=== PATIENT | female | born 1965 | race Caucasian/White ===

== ENCOUNTER → 2017-09-06 | Outpatient (CLI) | payer OTHER ==
[~2017-09-06] MED LIST: ACTOS PO; ALLOPURINOL PO; CALCIUM PO; CORGARD PO; CYMBALTA PO; LOVAZA1000 MG PO; METFORMIN PO; VITAMIN B-150 M1 PO
== END ==
LOC: M.ULTRA 09:00
DX: N93.9 Abnormal uterine and vaginal bleeding, unspecified (principal); Z78.0 Asymptomatic menopausal state